=== PATIENT | female | born 1935 | race Caucasian/White ===

== ENCOUNTER 2024-03-13 11:47 | Inpatient (IN) | payer MEDICARE, BC ==
[~2024-03-13] VITALS: Ht 165.1 cm; Wt 66.2 kg
[2024-03-13 13:12] LABS: BASOPHILS % (AUTO) 0.4 % (0.0-2.0); DIFFERENTIAL COMMENT 0; EOSINOPHILS # (AUTO) 0.1 K/uL (0.0-0.7); EOSINOPHILS % (AUTO) 0.9 % (0.0-7.0); HEMATOCRIT 36.9 % (31.2-41.9); HEMOGLOBIN 12.3 g/dL (10.9-14.3); LYMPHOCYTES # (AUTO) 0.9 K/uL (0.8-4.8); LYMPHOCYTES % (AUTO) 8.1 % (20.5-51.5); MEAN CORPUSCULAR HEMOGLOBIN 32.3 uug (24.7-32.8); MEAN CORPUSCULAR HGB CONC 33 g/dL (32.3-35.6); MEAN CORPUSCULAR VOLUME 96.7 fL (75.5-95.3); MONOCYTES # (AUTO) 0.5 K/uL (0.1-1.30); MONOCYTES % (AUTO) 4.2 % (0.0-11.0); NEUTROPHILS # (AUTO) 9.5 K/uL (1.8-8.9); NEUTROPHILS % (AUTO) 86.4 % (38.5-71.5); PLATELET COUNT (AUTO) 187 K/uL (179-408); RED BLOOD CELL COUNT(AUTO) 3.82 MIL/uL (3.63-4.92); RED CELL DISTRIBUTION WIDTH 15.2 % (12.3-17.7); WHITE BLOOD COUNT (AUTO) 10.9 K/uL (3.8-11.8)
[2024-03-13 13:15] LABS: CALCIUM 9.4 mg/dL (8.5-10.1); CARBON DIOXIDE 26 mmol/L (21-32); CHLORIDE 109 mmol/L (98-107); CREATININE 1.9 mg/dL (0.6-1.3); GLUCOSE 124 mg/dL (74-106); POTASSIUM 4.6 mmol/L (3.5-5.1); SODIUM SERUM 145 mmol/L (136-145); UREA NITROGEN, BLOOD 25 mg/dL (7-18)
[2024-03-13 13:24] LABS: CREATINE KINASE, TOTAL 113 U/L (26-192)
[2024-03-13 13:46] LABS: MAGNESIUM 2.2 mg/dL (1.8-2.4)
[2024-03-13] MEDS ORDERED: CYANOCOBALAMIN 1000 MCG/ML VIAL ONE (15:04)
[2024-03-13] MEDS: CYANOCOBALAMIN 1000 MCG/ML VIAL IM ONE (15:09)
[2024-03-13 15:36] LABS: BILIRUBIN,DIRECT 0.1 mg/dL (0.0-0.2); BILIRUBIN,TOTAL 0.4 mg/dL (0.2-1.0)
[2024-03-13] MEDS ORDERED: MIRT-93 PO (16:52)
[2024-03-13] MEDS ORDERED: GLIP2.5T3 PO (16:52)
[2024-03-13] MEDS ORDERED: ESCI20TA44 PO (16:52)
[2024-03-13] MEDS ORDERED: LOSA50TA39 PO (16:52)
[2024-03-13] MEDS ORDERED: ATOR80TA PO (16:52)
[2024-03-13] MEDS ORDERED: EZET10TA32 PO (16:52)
[2024-03-13] MEDS ORDERED: ONDANSETRON 4 MG/2 ML VIAL ONE (16:57)
[2024-03-13] MEDS ORDERED: KETOROLAC TROMETHAMINE 15 MG INJ ONE (16:57)
[2024-03-13] MEDS ORDERED: HYDROMORPHONE 1 MG/1 ML DISP.SYRIN ONE ×2 (16:57→17:50)
[2024-03-13] MEDS: HYDROMORPHONE 1 MG/1 ML DISP.SYRIN IM ONE (16:59)
[2024-03-13] MEDS: KETOROLAC TROMETHAMINE 15 MG INJ IM ONE (16:59)
[2024-03-13] MEDS ORDERED: ONDANSETRON ODT 4 MG TAB.RAPDIS ONE (17:00)
[2024-03-13] MEDS: ONDANSETRON ODT 4 MG TAB.RAPDIS SL ONE (17:01)
[2024-03-13] MEDS ORDERED: ACET-2605 PO (17:20)
[2024-03-13] MEDS ORDERED: ONDA4TAB11 PO (17:20)
[2024-03-13] MEDS: ENOXAPARIN SODIUM 40 MG/0.4 ML DISP.SYRIN SQ SCH (17:30)
[2024-03-13] MEDS ORDERED: DEXTROSE 50% 50 ML DISP.SYRIN IV PRN (17:30)
[2024-03-13] MEDS ORDERED: ONDANSETRON 4 MG/2 ML VIAL IV PRN (17:30)
[2024-03-13] MEDS ORDERED: REMEDY ESSENTIAL ZINC PASTE 113 GM TP PRN (17:30)
[2024-03-13] MEDS: HYDROMORPHONE 1 MG/1 ML DISP.SYRIN IV ONE (17:51)
[2024-03-13] MEDS: BLOOD SUGAR DIAGNOSTIC 1 EACH STRIP VI SCH (18:00)
[2024-03-13 18:45] VITALS: BP 155/64; TEMP 98.6; O2SAT 94
[2024-03-13 19:00] VITALS: BP 147/59; TEMP 97.8; O2SAT 99
[2024-03-13] MEDS: IV D5 1/2 NS 1000 ML 1,000 ML IV PRN (19:29)
[2024-03-13] MEDS: HEPARIN SODIUM,PORCINE 5,000 UNITS/ML VIAL SQ SCH (21:55)
[2024-03-13] MEDS: MORPHINE SULFATE 2 MG/1 ML DISP.SYRIN IV PRN (23:29)
[2024-03-14] MEDS: INSULIN REGULAR, HUMAN 1000 UNIT/10 ML VIAL SQ PRN (01:28)
[2024-03-14 06:00] VITALS: BP 146/65; TEMP 97.7; O2SAT 96
[2024-03-14 07:17] LABS: BASOPHILS % (AUTO) 0.4 % (0.0-2.0); EOSINOPHILS # (AUTO) 0.1 K/uL (0.0-0.7); EOSINOPHILS % (AUTO) 1.1 % (0.0-7.0); HEMOGLOBIN 10.6 g/dL (10.9-14.3); LYMPHOCYTES # (AUTO) 1.1 K/uL (0.8-4.8); LYMPHOCYTES % (AUTO) 14.3 % (20.5-51.5); MEAN CORPUSCULAR HGB CONC 34 g/dL (32.3-35.6); MEAN CORPUSCULAR VOLUME 96.5 fL (75.5-95.3); MONOCYTES # (AUTO) 0.5 K/uL (0.1-1.30); MONOCYTES % (AUTO) 6.1 % (0.0-11.0); NEUTROPHILS # (AUTO) 6.1 K/uL (1.8-8.9); NEUTROPHILS % (AUTO) 78.1 % (38.5-71.5); PLATELET COUNT (AUTO) 169 K/uL (179-408); RED BLOOD CELL COUNT(AUTO) 3.22 MIL/uL (3.63-4.92); WHITE BLOOD COUNT (AUTO) 7.9 K/uL (3.8-11.8)
[2024-03-14 07:19] LABS: DIFFERENTIAL COMMENT 1
[2024-03-14 07:43] LABS: CALCIUM 8.8 mg/dL (8.5-10.1); CARBON DIOXIDE 28 mmol/L (21-32); CHLORIDE 109 mmol/L (98-107); CREATININE 2.3 mg/dL (0.6-1.3); GLUCOSE 133 mg/dL (74-106); POTASSIUM 4.8 mmol/L (3.5-5.1); SODIUM SERUM 144 mmol/L (136-145); UREA NITROGEN, BLOOD 30 mg/dL (7-18)
[2024-03-14] MEDS: PANTOPRAZOLE SODIUM 40 MG VIAL IV SCH (09:12)
[2024-03-14 12:00] VITALS: BP 140/56; TEMP 97.7; O2SAT 94
[2024-03-14 16:00] VITALS: BP 111/70; TEMP 98.2; O2SAT 95
[2024-03-14 17:15] LABS: *BILIRUBIN,URIN NEGATIVE (NEGATIVE); *CLARITY,URINE CLEAR (CLEAR); *COLOR,URINE Other (YELLOW); *KETONES,URINE NEGATIVE (NEGATIVE); *PROTEIN,URINE 1+ (NEGATIVE); *UROBILINOGEN,URINE 0.2 E.U./dl (NORMAL); LEUKOCYTE ESTERASE ,URINE 1+ (NEGATIVE); NITRITE, URINE POSITIVE (NEGATIVE); UGLUCOSE NEGATIVE (NEGATIVE)
[2024-03-14 17:28] LABS: *BLOOD, URINE TRACE (NEGATIVE)
[2024-03-14 17:34] LABS: *CREATININE,URINE 173.6 mg/dL (30-125); *URINE TOTAL PROTEIN RANDOM 64.5 mg/dL (<150/24HR)
[2024-03-14] MEDS ORDERED: DEXTROSE 50% 50 ML DISP.SYRIN IV PRN (18:15)
[2024-03-14] MEDS ORDERED: INSULIN REGULAR, HUMAN 1000 UNIT/10 ML VIAL SQ PRN (18:15)
[2024-03-14 19:30] VITALS: BP 126/58; TEMP 96.9; O2SAT 98
[2024-03-14 19:52] LABS: BACTERIA,URINE MANY /HPF (NONE SEEN); SQUAMOUS EPITHELIAL CELL,UR MODERATE /HPF (NONE SEEN); WBC,URINE 20-50 /HPF (0-3)
[2024-03-14] MEDS ORDERED: ACETAMINOPHEN 500 MG TABLET PO PRN (20:00)
[2024-03-14] MEDS: ATORVASTATIN 40 MG TABLET PO SCH (21:00)
[2024-03-14] MEDS: BLOOD SUGAR DIAGNOSTIC 1 EACH STRIP VI SCH (21:25)
[2024-03-15] MEDS ORDERED: CIPROFLOXACIN IV 200 ML IV ONE (00:10)
[2024-03-15] MEDS: CIPROFLOXACIN IV 400 MG in PREMIXED 1 EACH IV SCH (00:34)
[2024-03-15 06:30] VITALS: BP 158/80; TEMP 97.1; O2SAT 95
[2024-03-15] MEDS: ESCITALOPRAM OXALATE 10 MG TABLET PO SCH (08:26)
[2024-03-15] MEDS: EZETIMIBE 10 MG TABLET PO SCH (08:26)
[2024-03-15] MEDS: glipiZIDE 5 MG TABLET PO SCH (08:27)
[2024-03-15 08:37] VITALS: BP 151/60
[2024-03-15] MEDS: LOSARTAN POTASSIUM 50 MG TABLET PO SCH (08:37)
[2024-03-15] MEDS ORDERED: glipiZIDE XL 2.5 MG TABCR PO SCH (09:00)
[2024-03-15 09:29] LABS: BASOPHILS % (AUTO) 0.5 % (0.0-2.0); EOSINOPHILS # (AUTO) 0.1 K/uL (0.0-0.7); EOSINOPHILS % (AUTO) 0.8 % (0.0-7.0); HEMATOCRIT 29.7 % (31.2-41.9); HEMOGLOBIN 10.3 g/dL (10.9-14.3); LYMPHOCYTES # (AUTO) 0.9 K/uL (0.8-4.8); LYMPHOCYTES % (AUTO) 10.3 % (20.5-51.5); MEAN CORPUSCULAR HEMOGLOBIN 33.4 uug (24.7-32.8); MEAN CORPUSCULAR HGB CONC 35 g/dL (32.3-35.6); MEAN CORPUSCULAR VOLUME 96.3 fL (75.5-95.3); MONOCYTES # (AUTO) 0.3 K/uL (0.1-1.30); MONOCYTES % (AUTO) 4.2 % (0.0-11.0); NEUTROPHILS % (AUTO) 84.2 % (38.5-71.5); PLATELET COUNT (AUTO) 141 K/uL (179-408); RED BLOOD CELL COUNT(AUTO) 3.08 MIL/uL (3.63-4.92); RED CELL DISTRIBUTION WIDTH 14.9 % (12.3-17.7); WHITE BLOOD COUNT (AUTO) 8.3 K/uL (3.8-11.8)
[2024-03-15 09:30] LABS: DIFFERENTIAL COMMENT 1
[2024-03-15 10:14] LABS: ALANINE AMINOTRANSFERASE 19 U/L (14-59); ALKALINE PHOSPHATASE 95 U/L (50-136); ASPARTATE AMINOTRANSFERASE 14 U/L (15-37); BILIRUBIN,TOTAL 0.3 mg/dL (0.2-1.0); CALCIUM 8.5 mg/dL (8.5-10.1); CARBON DIOXIDE 26 mmol/L (21-32); CHLORIDE 106 mmol/L (98-107); CREATINE KINASE, TOTAL 120 U/L (26-192); GLUCOSE 130 mg/dL (74-106); MAGNESIUM 1.9 mg/dL (1.8-2.4); PHOSPHOROUS 3.3 mg/dL (2.5-4.9); POTASSIUM 4.5 mmol/L (3.5-5.1); SODIUM SERUM 141 mmol/L (136-145); TOTAL PROTEIN, SERUM 6.2 g/dL (6.4-8.2); UREA NITROGEN, BLOOD 24 mg/dL (7-18)
[2024-03-15] MEDS ORDERED: ONDANSETRON HCL 4 MG TABLET PO PRN (11:00)
[2024-03-15 14:54] LABS: *BILIRUBIN,URIN NEGATIVE (NEGATIVE); *BLOOD, URINE 1+ (NEGATIVE); *CLARITY,URINE CLOUDY (CLEAR); *COLOR,URINE YELLOW (YELLOW); *KETONES,URINE NEGATIVE (NEGATIVE); *PROTEIN,URINE 2+ (NEGATIVE); *UROBILINOGEN,URINE 0.2 E.U./dl (NORMAL); LEUKOCYTE ESTERASE ,URINE 1+ (NEGATIVE); NITRITE, URINE NEGATIVE (NEGATIVE); PH,URINE 5.5 (5.0-8.0); UGLUCOSE NEGATIVE (NEGATIVE)
[2024-03-15 15:28] LABS: BACTERIA,URINE MANY /HPF (NONE SEEN); SQUAMOUS EPITHELIAL CELL,UR MODERATE /HPF (NONE SEEN); WBC,URINE 80-100 /HPF (0-3)
[2024-03-15] MEDS ORDERED: HEPA500034 SQ (16:23)
[2024-03-15] MEDS ORDERED: CIPR400P6 IV (16:23)
[2024-03-15] MEDS ORDERED: MIRTAZAPINE 15 MG TABLET PO SCH (18:00)
[2024-03-16] MEDS ORDERED: PANTOPRAZOLE SODIUM 40 MG TABLET.DR PO SCH (07:00)
[2024-03-17 09:06] LABS: PTH, INTACT 52 pg/mL (15-65)
[2024-03-18 06:11] LABS: A/G RATIO 1.1 (0.7-1.7); ALPHA-1-GLOBULIN 0.3 g/dL (0.0-0.4); BETA GLOBULIN 0.8 g/dL (0.7-1.3); GAMMA GLOBULIN 0.7 g/dL (0.4-1.8); GLOBULIN, TOTAL 2.7 g/dL (2.2-3.9); M-SPIKE Not Observed g/dL (Not Observed); PROTEIN, TOTAL 5.7 g/dL (6.0-8.5)
== END 2024-03-15 14:54 | DRG 536 ==
LOC: ER 11:47 → MEDSURG3 18:10
DX: S72.112A Displaced fracture of greater trochanter of left femur, initial encounter for closed fracture (principal); N18.4 Chronic kidney disease, stage 4 (severe); W18.39XA Other fall on same level, initial encounter; Y92.099 Unspecified place in other non-institutional residence as the place of occurrence of the external cause; E53.8 Deficiency of other specified B group vitamins; I35.1 Nonrheumatic aortic (valve) insufficiency; E78.5 Hyperlipidemia, unspecified; E11.22 Type 2 diabetes mellitus with diabetic chronic kidney disease; I12.9 Hypertensive chronic kidney disease with stage 1 through stage 4 chronic kidney disease, or unspecified chronic kidney disease; F39 Unspecified mood [affective] disorder; F09 Unspecified mental disorder due to known physiological condition; Z88.0 Allergy status to penicillin; Z79.84 Long term (current) use of oral hypoglycemic drugs; Z79.899 Other long term (current) drug therapy
CPT/HCPCS: 36415; 71045; 72170; 73502; 73700; 76770; 83605; 83735; 83970; 84100; 84155; 84165; 84300; 84484; 85025; 85730; 93307; A4606; A4663; G0378; J0744; J1171; J1644; J1815; J1885; J2270; J2405; J2470; J3420; Q0162

== ENCOUNTER 2024-03-15 15:05 | Inpatient (IN) | payer MEDICARE, BC ==
[~2024-03-15] VITALS: Ht 170.2 cm; Wt 68.1 kg
[~2024-03-15 15:05] MED LIST: ACET-2605 PO; ATOR80TA PO; ESCI20TA44 PO; EZET10TA32 PO; GLIP2.5T3 PO; LOSA50TA39 PO; MIRT-93 PO
[2024-03-15] MEDS ORDERED: HEPA500034 SQ (16:23)
[2024-03-15] MEDS ORDERED: CIPR400P6 IV (16:23)
[2024-03-15] MEDS: MIRTAZAPINE 15 MG TABLET PO SCH (18:08)
[2024-03-15] MEDS: CIPROFLOXACIN HCL 250 MG TABLET PO SCH (20:23)
[2024-03-15] MEDS: ATORVASTATIN 40 MG TABLET PO SCH (20:24)
[2024-03-15] MEDS: HEPARIN SODIUM,PORCINE 5,000 UNITS/ML VIAL SQ SCH (20:26)
[2024-03-16] MEDS: glipiZIDE XL 2.5 MG TABCR PO SCH (06:46)
[2024-03-16 06:50] VITALS: BP 144/66; TEMP 97.6
[2024-03-16] MEDS: ACETAMINOPHEN 500 MG TABLET PO PRN (08:39)
[2024-03-16] MEDS: LOSARTAN POTASSIUM 50 MG TABLET PO SCH (08:39)
[2024-03-16] MEDS: EZETIMIBE 10 MG TABLET PO SCH (08:39)
[2024-03-16] MEDS: ESCITALOPRAM OXALATE 10 MG TABLET PO SCH (08:40)
[2024-03-16] MEDS: BLOOD SUGAR DIAGNOSTIC 1 EACH STRIP VI SCH (11:28)
[2024-03-16 13:16] VITALS: BP 104/53; TEMP 97.7; O2SAT 95
[2024-03-16 18:06] VITALS: BP 119/66; TEMP 97.7; O2SAT 96
[2024-03-16] MEDS: MIRALAX 17 GM POWD.PACK PO SCH (20:39)
[2024-03-16 22:00] VITALS: BP 127/62; TEMP 97.9; O2SAT 96
[2024-03-17 02:00] VITALS: BP 144/66; TEMP 98.2; O2SAT 97
[2024-03-17] MEDS: OXYCODONE/APAP 5-325 MG TABLET PO PRN (08:37)
[2024-03-17 18:40] VITALS: BP 117/63; TEMP 98.1; O2SAT 95
[2024-03-17] MEDS ORDERED: BISACODYL 5 MG TABLET.DR PO SCH (21:00)
[2024-03-17] MEDS: INSULIN REGULAR, HUMAN 1000 UNIT/10 ML VIAL SQ PRN (21:13)
[2024-03-17] MEDS: BISACODYL 5 MG TABLET.DR PO SCH (21:22)
[2024-03-17 21:48] VITALS: BP 122/59; TEMP 98.1; O2SAT 95
[2024-03-18 06:36] VITALS: BP 158/81; TEMP 98.1; O2SAT 98
[2024-03-18 20:00] VITALS: BP 127/61; TEMP 97.9; O2SAT 94
[2024-03-19 06:39] VITALS: BP 127/57; TEMP 97.2; O2SAT 97
[2024-03-19 08:05] LABS: BASOPHILS # (AUTO) 0.1 K/UL (0.0-0.2); BASOPHILS % (AUTO) 0.6 % (0.0-2.0); EOSINOPHILS # (AUTO) 0.2 K/uL (0.0-0.7); EOSINOPHILS % (AUTO) 2.6 % (0.0-7.0); HEMATOCRIT 28.5 % (31.2-41.9); HEMOGLOBIN 9.8 g/dL (10.9-14.3); LYMPHOCYTES # (AUTO) 1.5 K/uL (0.8-4.8); LYMPHOCYTES % (AUTO) 18.9 % (20.5-51.5); MEAN CORPUSCULAR HEMOGLOBIN 33.5 uug (24.7-32.8); MEAN CORPUSCULAR HGB CONC 34 g/dL (32.3-35.6); MEAN CORPUSCULAR VOLUME 97.2 fL (75.5-95.3); MONOCYTES # (AUTO) 0.5 K/uL (0.1-1.30); MONOCYTES % (AUTO) 6.4 % (0.0-11.0); NEUTROPHILS # (AUTO) 5.8 K/uL (1.8-8.9); NEUTROPHILS % (AUTO) 71.5 % (38.5-71.5); PLATELET COUNT (AUTO) 188 K/uL (179-408); RED BLOOD CELL COUNT(AUTO) 2.93 MIL/uL (3.63-4.92); RED CELL DISTRIBUTION WIDTH 15.4 % (12.3-17.7); WHITE BLOOD COUNT (AUTO) 8.1 K/uL (3.8-11.8)
[2024-03-19 08:13] LABS: DIFFERENTIAL COMMENT 1
[2024-03-19 08:24] LABS: CARBON DIOXIDE 27 mmol/L (21-32); CHLORIDE 109 mmol/L (98-107); GLUCOSE 117 mg/dL (74-106); MAGNESIUM 2.4 mg/dL (1.8-2.4); PHOSPHOROUS 4.3 mg/dL (2.5-4.9); POTASSIUM 4.6 mmol/L (3.5-5.1); SODIUM SERUM 145 mmol/L (136-145); UREA NITROGEN, BLOOD 39 mg/dL (7-18)
[2024-03-19 16:00] VITALS: BP 113/53; TEMP 97.8; O2SAT 96
[2024-03-19 19:58] VITALS: BP 115/46; TEMP 98.9; O2SAT 96
[2024-03-20] MEDS: PANTOPRAZOLE SODIUM 40 MG TABLET.DR PO SCH (06:40)
[2024-03-20 09:40] VITALS: BP 105/47; TEMP 98.4
[2024-03-20 20:00] VITALS: BP 124/58; TEMP 97.3; O2SAT 98
[2024-03-21 16:21] VITALS: BP 114/54; TEMP 97.7; O2SAT 97
[2024-03-21] MEDS: DEXTROSE 50% 50 ML DISP.SYRIN IV PRN (17:27)
[2024-03-21 20:18] VITALS: BP 98/46; TEMP 97.9; O2SAT 99
[2024-03-22 06:33] VITALS: BP 139/61; TEMP 97.8; O2SAT 96
[2024-03-22] MEDS: MAGNESIUM HYDROXIDE 30 ML LIQUID UDC PO ONE (12:06)
[2024-03-22 16:24] VITALS: BP 112/61; TEMP 97.5; O2SAT 98
[2024-03-22 20:00] VITALS: BP_SYST 102; BP_SYST 147; BP_DIAS 51; BP_DIAS 83; TEMP 97.4; TEMP 98; O2SAT 93; O2SAT 97
[2024-03-23 06:00] VITALS: BP 131/90; TEMP 98; O2SAT 98
[2024-03-23 17:05] VITALS: BP 129/70; TEMP 98; O2SAT 97
[2024-03-23 21:15] VITALS: BP 115/46; TEMP 98.9; O2SAT 97
[2024-03-24 06:11] VITALS: BP 137/67; TEMP 98.3
[2024-03-24 07:11] LABS: BASOPHILS # (AUTO) 0.1 K/UL (0.0-0.2); BASOPHILS % (AUTO) 0.8 % (0.0-2.0); EOSINOPHILS # (AUTO) 0.3 K/uL (0.0-0.7); EOSINOPHILS % (AUTO) 3.2 % (0.0-7.0); HEMATOCRIT 29.5 % (31.2-41.9); LYMPHOCYTES # (AUTO) 1.6 K/uL (0.8-4.8); LYMPHOCYTES % (AUTO) 19.5 % (20.5-51.5); MEAN CORPUSCULAR HEMOGLOBIN 32.8 uug (24.7-32.8); MEAN CORPUSCULAR HGB CONC 34 g/dL (32.3-35.6); MEAN CORPUSCULAR VOLUME 97.1 fL (75.5-95.3); MONOCYTES # (AUTO) 0.4 K/uL (0.1-1.30); MONOCYTES % (AUTO) 5.5 % (0.0-11.0); NEUTROPHILS # (AUTO) 5.8 K/uL (1.8-8.9); PLATELET COUNT (AUTO) 242 K/uL (179-408); RED BLOOD CELL COUNT(AUTO) 3.03 MIL/uL (3.63-4.92); RED CELL DISTRIBUTION WIDTH 16.1 % (12.3-17.7); WHITE BLOOD COUNT (AUTO) 8.2 K/uL (3.8-11.8)
[2024-03-24 07:14] LABS: DIFFERENTIAL COMMENT 1
[2024-03-24 07:36] LABS: ALANINE AMINOTRANSFERASE 30 U/L (14-59); ALBUMIN 2.9 g/dL (3.4-5.0); ALKALINE PHOSPHATASE 127 U/L (50-136); ASPARTATE AMINOTRANSFERASE 17 U/L (15-37); BILIRUBIN,TOTAL 2.5 mg/dL (0.2-1.0); CALCIUM 8.9 mg/dL (8.5-10.1); CARBON DIOXIDE 27 mmol/L (21-32); CHLORIDE 107 mmol/L (98-107); CREATININE 2.2 mg/dL (0.6-1.3); GLUCOSE 118 mg/dL (74-106); MAGNESIUM 2.9 mg/dL (1.8-2.4); PHOSPHOROUS 3.3 mg/dL (2.5-4.9); POTASSIUM 5.7 mmol/L (3.5-5.1); SODIUM SERUM 140 mmol/L (136-145); TOTAL PROTEIN, SERUM 6.4 g/dL (6.4-8.2); UREA NITROGEN, BLOOD 48 mg/dL (7-18)
[2024-03-24] MEDS: SODIUM ZIRCONIUM CYCLOSILICATE 10 GM POWD.PACK PO SCH (11:03)
[2024-03-24 14:52] LABS: CALCIUM 8.7 mg/dL (8.5-10.1); CARBON DIOXIDE 26 mmol/L (21-32); CHLORIDE 102 mmol/L (98-107); CREATININE 2.4 mg/dL (0.6-1.3); GLUCOSE 182 mg/dL (74-106); POTASSIUM 5.6 mmol/L (3.5-5.1); SODIUM SERUM 137 mmol/L (136-145); UREA NITROGEN, BLOOD 53 mg/dL (7-18)
[2024-03-24 16:42] VITALS: BP 128/65; TEMP 97.6; O2SAT 97
[2024-03-24 19:47] VITALS: BP 117/60; TEMP 97.4; O2SAT 98
[2024-03-25 06:25] VITALS: BP 133/55; TEMP 97.4; O2SAT 98
[2024-03-25 09:01] LABS: BASOPHILS # (AUTO) 0.1 K/UL (0.0-0.2); BASOPHILS % (AUTO) 0.6 % (0.0-2.0); EOSINOPHILS # (AUTO) 0.3 K/uL (0.0-0.7); EOSINOPHILS % (AUTO) 2.9 % (0.0-7.0); HEMATOCRIT 33.1 % (31.2-41.9); HEMOGLOBIN 11.2 g/dL (10.9-14.3); LYMPHOCYTES % (AUTO) 21.1 % (20.5-51.5); MEAN CORPUSCULAR HEMOGLOBIN 33.1 uug (24.7-32.8); MEAN CORPUSCULAR HGB CONC 34 g/dL (32.3-35.6); MEAN CORPUSCULAR VOLUME 97.9 fL (75.5-95.3); MONOCYTES # (AUTO) 0.4 K/uL (0.1-1.30); MONOCYTES % (AUTO) 3.9 % (0.0-11.0); NEUTROPHILS # (AUTO) 6.7 K/uL (1.8-8.9); NEUTROPHILS % (AUTO) 71.5 % (38.5-71.5); PLATELET COUNT (AUTO) 289 K/uL (179-408); RED BLOOD CELL COUNT(AUTO) 3.38 MIL/uL (3.63-4.92); RED CELL DISTRIBUTION WIDTH 16.2 % (12.3-17.7); WHITE BLOOD COUNT (AUTO) 9.4 K/uL (3.8-11.8)
[2024-03-25 09:03] LABS: DIFFERENTIAL COMMENT 1
[2024-03-25 09:18] LABS: ALANINE AMINOTRANSFERASE 18 U/L (14-59); ALBUMIN 3.4 g/dL (3.4-5.0); ALKALINE PHOSPHATASE 176 U/L (50-136); ASPARTATE AMINOTRANSFERASE 18 U/L (15-37); BILIRUBIN,TOTAL 0.7 mg/dL (0.2-1.0); CALCIUM 8.7 mg/dL (8.5-10.1); CARBON DIOXIDE 27 mmol/L (21-32); CHLORIDE 103 mmol/L (98-107); CREATININE 2.3 mg/dL (0.6-1.3); GLUCOSE 118 mg/dL (74-106); PHOSPHOROUS 4.8 mg/dL (2.5-4.9); POTASSIUM 4.7 mmol/L (3.5-5.1); SODIUM SERUM 139 mmol/L (136-145); TOTAL PROTEIN, SERUM 7.4 g/dL (6.4-8.2); UREA NITROGEN, BLOOD 49 mg/dL (7-18)
[2024-03-25 16:06] VITALS: BP 100/46; TEMP 98.3; O2SAT 97
[2024-03-25 22:20] VITALS: BP 133/54; TEMP 98; O2SAT 96
[2024-03-26 06:23] VITALS: BP 133/51; TEMP 98; O2SAT 98
[2024-03-26] MEDS ORDERED: VITAMIN E CREAM 56.7 GM JAR TP SCH (09:00)
[2024-03-26 16:13] VITALS: BP 108/57; TEMP 98.1; O2SAT 98
[2024-03-26 20:15] VITALS: BP 120/61; TEMP 98.9; O2SAT 95
[2024-03-27 06:16] VITALS: BP 115/61; TEMP 97.9; O2SAT 99
[2024-03-27 10:52] VITALS: BP 109/67; TEMP 97.6; O2SAT 97
[2024-03-27] MEDS: VITAMIN E CREAM 56.7 GM JAR TP SCH (10:56)
[2024-03-27 18:28] VITALS: BP 107/54; TEMP 97.2; O2SAT 96
[2024-03-27 19:00] VITALS: BP 127/74; TEMP 97.8; O2SAT 95
[2024-03-28 06:00] VITALS: BP 143/59; TEMP 97.6; O2SAT 97
[2024-03-28 15:01] VITALS: BP 108/65; TEMP 98.5; O2SAT 100
[2024-03-28 19:55] VITALS: BP 111/49; TEMP 98.2; O2SAT 95
[2024-03-29 07:02] VITALS: BP 121/55; TEMP 98.3; O2SAT 95
[2024-03-29] MEDS ORDERED: MIRALAX 17 GM POWD.PACK PO PRN (11:00)
[2024-03-29 16:09] VITALS: BP 128/55; TEMP 97.7; O2SAT 96
[2024-03-29 20:00] VITALS: TEMP 97.5
[2024-03-30 06:00] VITALS: TEMP 97.8
[2024-03-30] MEDS: CYANOCOBALAMIN 1000 MCG/ML VIAL IM ONE (13:27)
== END 2024-03-30 13:30 | disposition home health service (06) | DRG 559 ==
PROVIDERS: ADMIT Physical Medicine & Rehabilitation Pain Medicine; ATTEND Physical Medicine & Rehabilitation Pain Medicine
DX: S72.115D Nondisplaced fracture of greater trochanter of left femur, subsequent encounter for closed fracture with routine healing (principal); N17.0 Acute kidney failure with tubular necrosis; D68.59 Other primary thrombophilia; N39.0 Urinary tract infection, site not specified; E44.1 Mild protein-calorie malnutrition; E11.22 Type 2 diabetes mellitus with diabetic chronic kidney disease; E78.5 Hyperlipidemia, unspecified; W18.30XD Fall on same level, unspecified, subsequent encounter; F39 Unspecified mood [affective] disorder; I12.9 Hypertensive chronic kidney disease with stage 1 through stage 4 chronic kidney disease, or unspecified chronic kidney disease; N18.9 Chronic kidney disease, unspecified; Z96.642 Presence of left artificial hip joint; D53.9 Nutritional anemia, unspecified; B96.89 Other specified bacterial agents as the cause of diseases classified elsewhere; E53.8 Deficiency of other specified B group vitamins; E87.5 Hyperkalemia; F32.A Depression, unspecified; K21.9 Gastro-esophageal reflux disease without esophagitis; M89.8X9 Other specified disorders of bone, unspecified site; Z88.0 Allergy status to penicillin; M19.90 Unspecified osteoarthritis, unspecified site; R26.89 Other abnormalities of gait and mobility
CPT/HCPCS: 36415; 83735; 84100; 85025; 97535-GO-CO; A9150; J1644; J1815; J3420; J3490